=== PATIENT | male | born 1950 | race Caucasian/White ===

== ENCOUNTER 2019-11-11 05:08 | Emergency (ER) | payer OTHER ==
[~2019-11-11] VITALS: Ht 177.8 cm; Wt 81.6 kg
[2019-11-11 05:26] VITALS: BP_SYST 103
--- NOTE | 2019-11-11 07:15 | NUR ---
Patient to ER bed 5 to gown for evaluation. Side rails up.
--- NOTE | 2019-11-11 07:16 | NUR ---
report received from Florentin BARAKAT. Pt is in stable condition
--- NOTE | 2019-11-11 07:30 | NUR ---
pt arrives from [facility]. Pt removed his robles cath and was bleeding from the urethera. Pt is awake however is confused. Per pt's that is his baseline. Will continue to monitor
--- NOTE | 2019-11-11 08:00 | NUR ---
ER at bedside examining patient.
--- NOTE | 2019-11-11 09:00 | NUR ---
# 16 FR coude Robles catheter with use of sterile technique. Immediate return of 175 cc blane urine noted. Bedside drainage bag placed below level of bladder. Urine sample collected and sent to lab. Pt tolerated procedure well. Patient arrived with robles in place, changed due to standard of practice prior to admission. Patient unable to toilet self.
--- NOTE | 2019-11-11 10:10 | NUR ---
pt will be returning to [facility].
--- NOTE | 2019-11-11 10:18 | NUR ---
Spoke w/ Kenneth from [facility] [phone]. Imformed him that the pt will be returning to them.
--- NOTE | 2019-11-11 11:01 | NUR ---
Patient given written and verbal discharge instructions and verbalizes understanding. ER MD discussed with patient the results and treatment provided. Patient in stable condition. ID arm band removed. Patient educated on pain management and to follow up with PMD. Pain Scale 0/10. Opportunity for questions provided and answered. Medication side effect fact sheet provided.
[2019-11-11 11:02] VITALS: BP_SYST 110
== END 2019-11-11 11:02 | disposition home or self-care (01) ==
LOC: SED 05:08
DX: T83.021A Displacement of indwelling urethral catheter, initial encounter (principal); T83.511A Infection and inflammatory reaction due to indwelling urethral catheter, initial encounter; I12.9 Hypertensive chronic kidney disease with stage 1 through stage 4 chronic kidney disease, or unspecified chronic kidney disease; E11.22 Type 2 diabetes mellitus with diabetic chronic kidney disease; N18.9 Chronic kidney disease, unspecified; Z88.2 Allergy status to sulfonamides; Z86.718 Personal history of other venous thrombosis and embolism; X58.XXXA Exposure to other specified factors, initial encounter
CPT/HCPCS: 99284